=== PATIENT | female | born 1950 | race Caucasian/White ===

== ENCOUNTER 2017-11-07 05:27 | Day surgery (SDC) | payer OTHER ==
[~2017-11-07] VITALS: Ht 157.5 cm; Wt 90.7 kg
[~2017-11-07 05:27] MED LIST: ASTEPRO 0.15%30 ML BOTH NARES; BISOPROLOL-HCT1 EAC2 PO; CLARITIN,ALAVAR10 MG PO; FLONASE16 G1 BOTH NARES; LISINOPRIL10 MG PO; OMEPRAZOLE20 MG PO; PRAVACHOL20 MG PO; SINGULAIR10 MG PO
[2017-11-07] MEDS ORDERED: LO-DOSE ASPIRIN81 M1 PO (06:21)
[2017-11-07 06:27] VITALS: BP 160/72
[2017-11-07 11:30] VITALS: BP 157/71
[2017-11-07 12:39] VITALS: BP 160/80
== END 2017-11-07 13:50 | disposition home or self-care (01) ==
LOC: SDC 05:27
DX: S86.012A Strain of left Achilles tendon, initial encounter (principal); W10.1XXA Fall (on)(from) sidewalk curb, initial encounter; M67.02 Short Achilles tendon (acquired), left ankle; I10 Essential (primary) hypertension
CPT/HCPCS: 88304; J0690; J1100; J1885; J2250; J2405; J2795; J3010; J3475; Q0175; S0020